=== PATIENT | male | born 1935 ===

== ENCOUNTER 2022-02-24 09:31 | Outpatient (CLI) | payer MEDICARE | END 2022-02-24 09:32 | disposition home or self-care (01) | LOC: CSHMRI 09:31 | PROVIDERS: ATTEND Specialist | DX: M43.16 Spondylolisthesis, lumbar region (principal); M51.16 Intervertebral disc disorders with radiculopathy, lumbar region; M25.78 Osteophyte, vertebrae; M47.816 Spondylosis without myelopathy or radiculopathy, lumbar region; N28.9 Disorder of kidney and ureter, unspecified | CPT/HCPCS: 72120; 72148 ==